=== PATIENT | female | born 1990 | race Caucasian/White ===

== ENCOUNTER 2018-04-28 11:44 | Outpatient (REF) | payer MEDICAID, SELFPAY ==
[2018-04-28 22:21] LABS: Cholesterol 138 mg/dL (50-200); Glucose 87 mg/dL (70-100); HDL Cholesterol 74 mg/dL (40-60); LDL CHOLESTEROL 54 mg/dL (<100); Triglyceride 43 mg/dL (30-150)
[2018-04-28 22:25] LABS: HCT 45.9 % (36.0-46.0); HGB 15.7 g/dL (12.0-15.5); Mean Corp. HGB Concentration 34.2 g/dL (32.0-36.0); Mean Corpuscular Hemoglobin 33.3 pg (27.0-33.0); Mean Corpuscular Volume 97.2 fL (80-95); Mean Platelet Volume 11.5 fL (8.0-11.0); Platelet Count 240 x1000/uL (130-400); RBC 4.72 m/cumm (4.00-5.20); RBC Distribution Width 12.8 % (11.7-14.6); White Blood Cell Count 9.31 k/cumm (4.4-10.8)
[2018-04-30 13:16] LABS: Chlamydia Result Negative; GC Result Negative; Specimen Description URINE
== END 2018-04-28 12:04 ==
LOC: NCHCN 11:44
PROVIDERS: PCP Registered Nurse; Visit Provider Registered Nurse
DX: Z83.3 Family history of diabetes mellitus (principal); Z13.1 Encounter for screening for diabetes mellitus; D50.9 Iron deficiency anemia, unspecified; Z11.3 Encounter for screening for infections with a predominantly sexual mode of transmission
CPT/HCPCS: 80061; 82947; 83721; 85027; 87491; 87591

== ENCOUNTER 2021-07-17 10:30 | Outpatient (REF) | payer SELFPAY ==
--- NOTE | 2021-07-17 09:45 | PAPFT_PTH ---
PATIENT: Jojo Tang LOC: [facility] U#:[id number] AGE/SX: 31/F ROOM: RE07/17/[address]: Bee Clinton DO : 1990 BED: DIS: 07/17/2021 SPEC #: [id number] RECD: 07/17/21 12:54 STATUS: DELORES REQ #: [id number] JACINTO: 07/17/21 09:[address]: Bee Clinton DEPT: [facility] Cytology RECD BY: Tiffany Garcia ENTERED: 07/17/21 12:54 SP TYPE: PAPFT OTHR DR: Niecy Ayoub Tissues: 1 - CX/ENDOCX FOR PAP SMEARS Procedures: PAP THIN PREP/[facility] Screening HPV DNA PROBE Comments: [id number] (CHLAMYDIA/GC)
[2021-07-18 15:33] LABS: Chlamydia Result Negative (Negative); GC Result Negative (Negative)
== END 2021-07-17 10:31 | disposition home or self-care (01) ==
LOC: LBN 10:30
PROVIDERS: PCP Registered Nurse; Visit Provider Obstetrics & Gynecology
DX: Z12.4 Encounter for screening for malignant neoplasm of cervix (principal); Z11.51 Encounter for screening for human papillomavirus (HPV); Z11.3 Encounter for screening for infections with a predominantly sexual mode of transmission; R87.610 Atypical squamous cells of undetermined significance on cytologic smear of cervix (ASC-US); R87.810 Cervical high risk human papillomavirus (HPV) DNA test positive
CPT/HCPCS: 87491; 87591; 88142; 87624

== ENCOUNTER 2021-07-18 02:21 | Outpatient (CLI) | payer SELFPAY ==
[2021-07-18 12:41] LABS: TSH (W/Ref FT4) 0.61 uIU/mL (0.36-3.74)
[2021-07-18 18:37] LABS: Prolactin 3.4 ng/mL (See Table)
== END 2021-07-18 02:22 | disposition home or self-care (01) ==
LOC: LBO 02:22
PROVIDERS: PCP Registered Nurse; Visit Provider Obstetrics & Gynecology
DX: N91.5 Oligomenorrhea, unspecified (principal)
CPT/HCPCS: 36415; 84146; 84443